=== PATIENT | male | born 1975 | race Caucasian/White ===

== ENCOUNTER 2017-07-17 21:21 | Emergency (ER) | payer OTHER ==
[~2017-07-17] VITALS: Ht 182.9 cm; Wt 136.1 kg
[~2017-07-17 21:21] MED LIST: AMLODIPINE BESYL5 M1 PO; AMOXICILLIN 50500 MG PO; ANUCORT-HC25 MG RECTAL; BENICAR HCT 401 EACH PO; CIPRO500 M1 PO; HYDROCODONE-AP1 EAC6 PO; IBUPROFEN 800800 M1 PO; LOSARTAN-HCTZ1 EAC2; PROTONIX40 M4 PO; TRAMADOL 50 MG50 MG PO
[2017-07-17] MEDS ORDERED: PREDNISONE 20 M20 MG PO (21:30)
[2017-07-17] MEDS ORDERED: TESSALON PERLE100 MG (21:30)
[2017-07-17] MEDS ORDERED: FLONASE 0.05%50 MCG (21:30)
[2017-07-17] MEDS ORDERED: AUGMENTIN 875-1 EACH (21:30)
[2017-07-17] MEDS ORDERED: MUCINEX600 MG (21:31)
[2017-07-17] MEDS ORDERED: VENTOLIN HFA 1818 GM INH (22:39)
[2017-07-17 22:50] VITALS: BP 160/93
== END 2017-07-17 22:50 | disposition home or self-care (01) ==
LOC: M.ERS 21:21
DX: B34.9 Viral infection, unspecified (principal); I10 Essential (primary) hypertension; F10.99 Alcohol use, unspecified with unspecified alcohol-induced disorder; Z98.890 Other specified postprocedural states